=== PATIENT | female | born 1995 | race Caucasian/White ===

== ENCOUNTER 2017-03-04 19:28 | Emergency (ER) | payer OTHER ==
[~2017-03-04] VITALS: Ht 165.1 cm; Wt 63.5 kg
[2017-03-04 19:35] VITALS: BP 119/67
--- NOTE | 2017-03-04 19:44 | PHYS DOC ---
Adult General Chief Complaint Chief Complaint: FLANK PAIN HPI HPI Patient is a 21 year old female with no significant medical history who presents with 2 out of 10 right flank pain that began this afternoon. Patient is also complaining of nausea with vomiting. Patient denies any history of kidney stones but has a family history of kidney stones with the mother and grand father having kidney stones. Patient states she is currently on her cycle. Denies any urgency frequency or dysuria. Review of Systems Review of Systems Constitutional: Denies fever or chills [] Eyes: Denies change in visual acuity, redness, or eye pain [] HENT: Denies nasal congestion or sore throat [] Respiratory: Denies cough or shortness of breath [] Cardiovascular: No additional information not addressed in HPI [] GI: Nausea and vomiting : Right flank pain Musculoskeletal: Denies back pain or joint pain [] Integument: Denies rash or skin lesions [] Neurologic: Denies headache, focal weakness or sensory changes [] Endocrine: Denies polyuria or polydipsia [] Current Medications Current Medications Current Medications Medications (Trade) Dose Ordered Sig/Rachel Start Time Stop Time Status Last Admin Dose Admin Fentanyl Citrate (Fentanyl 2ml Vial) 50 mcg 1X ONCE 03/04/17 21:45 03/04/17 21:46 UNV Ketorolac Tromethamine (Toradol) 30 mg 1X ONCE 03/04/17 19:45 03/04/17 19:46 DC 03/04/17 20:11 30 MG Ondansetron HCl (Zofran) 4 mg 1X ONCE 03/04/17 19:45 03/04/17 19:46 DC 03/04/17 20:11 4 MG Sodium Chloride 1,000 ml @ 1,000 mls/hr 1X ONCE 03/04/17 19:45 03/04/17 20:44 DC 03/04/17 20:10 1,000 MLS/HR Tamsulosin HCl (Flomax) 0.4 mg 1X ONCE 03/04/17 21:45 03/04/17 21:46 UNV Allergies Allergies Allergies Coded Allergies Type Severity Reaction Last Updated Verified No Known Drug Allergies 03/04/17 No Physical Exam Physical Exam Constitutional: Well developed, well nourished, no acute distress, non-toxic appearance. [] HENT: Normocephalic, atraumatic, bilateral external ears normal, oropharynx moist, no oral exudates, nose normal. [] Eyes: PERRLA, EOMI, conjunctiva normal, no discharge. [] Neck: Normal range of motion, no tenderness, supple, no stridor. [] Cardiovascular:Heart rate regular rhythm, no murmur [] Lungs & Thorax: Bilateral breath sounds clear to auscultation [] Abdomen: Bowel sounds normal, soft, no tenderness, no masses, no pulsatile masses. [] Skin: Warm, dry, no erythema, no rash. [] Back: No tenderness, no CVA tenderness. [] Extremities: No tenderness, no cyanosis, no clubbing, ROM intact, no edema. [] Neurologic: Alert and oriented X 3, normal motor function, normal sensory function, no focal deficits noted. [] Psychologic: Affect normal, judgement normal, mood normal. [] Current Patient Data Vital Signs Vital Signs Date Time Temp Pulse Resp B/P (MAP) Pulse Ox O2 Delivery O2 Flow Rate FiO2 03/04/17 19:35 98.8 108 18 119/67 (84) 100 Room Air 98.8 Lab Values Laboratory Tests Test 03/04/17 18:52 03/04/17 19:40 03/04/17 19:55 POC Urine HCG, Qualitative Hcg negative (Negative) Urine Collection Type Unknown Urine Color Yellow Urine Clarity Clear Urine pH 5.5 Urine Specific Elizabeth >=1.030 Urine Protein 30 mg/dL (NEG-TRACE) Urine Glucose (UA) Negative mg/dL (NEG) Urine Ketones (Stick) Negative mg/dL (NEG) Urine Blood Large (NEG) Urine Nitrite Negative (NEG) Urine Bilirubin Negative (NEG) Urine Urobilinogen Dipstick 0.2 mg/dL (0.2 mg/dL) Urine Leukocyte Esterase Negative (NEG) Urine RBC Tntc /HPF (0-2) Urine WBC 0 /HPF (0-4) Urine Bacteria 0 /HPF (0-FEW) Urine Mucus Marked /LPF Urine Opiates Screen Neg (NEG) Urine Methadone Screen Neg (NEG) Urine Barbiturates Neg (NEG) Urine Phencyclidine Screen Neg (NEG) Urine Amphetamine/Methamphetamine Neg (NEG) Urine Benzodiazepines Screen Neg (NEG) Urine Cocaine Screen Neg (NEG) Urine Cannabinoids Screen Neg (NEG) Urine Ethyl Alcohol Neg (NEG) White Blood Count 11.5 x10^3/uL (4.0-11.0) H Red Blood Count 4.15 x10^6/uL (3.50-5.40) Hemoglobin 9.0 g/dL (12.0-15.5) L Hematocrit 28.2 % (36.0-47.0) L Mean Corpuscular Volume 68 fL (79-100) L Mean Corpuscular Hemoglobin 22 pg (25-35) L Mean Corpuscular Hemoglobin Concent 32 g/dL (31-37) Red Cell Distribution Width 17.3 % (11.5-14.5) H Platelet Count 333 x10^3/uL (140-400) Neutrophils (%) (Auto) 62 % (31-73) Lymphocytes (%) (Auto) 29 % (24-48) Monocytes (%) (Auto) 4 % (0-9) Eosinophils (%) (Auto) 4 % (0-3) H Basophils (%) (Auto) 1 % (0-3) Neutrophils # (Auto) 7.2 x10^3uL (1.8-7.7) Lymphocytes # (Auto) 3.3 x10^3/uL (1.0-4.8) Monocytes # (Auto) 0.5 x10^3/uL (0.0-1.1) Eosinophils # (Auto) 0.5 x10^3/uL (0.0-0.7) Basophils # (Auto) 0.1 x10^3/uL (0.0-0.2) Platelet Estimate Adequate (ADEQUATE) Hypochromasia Mod Poikilocytosis Slight Anisocytosis Slight Microcytosis Mod Ovalocytes Few Schistocytes Occ Sodium Level 142 mmol/L (136-145) Potassium Level 3.6 mmol/L (3.5-5.1) Chloride Level 106 mmol/L (98-107) Carbon Dioxide Level 26 mmol/L (21-32) Anion Gap 10 (6-14) Blood Urea Nitrogen 12 mg/dL (7-20) Creatinine 0.7 mg/dL (0.6-1.0) Estimated GFR (Cockcroft-Gault) 107.8 BUN/Creatinine Ratio 17 (6-20) Glucose Level 95 mg/dL (70-99) Calcium Level 9.3 mg/dL (8.5-10.1) Total Bilirubin 0.1 mg/dL (0.2-1.0) L Aspartate Amino Transferase (AST) 17 U/L (15-37) Alanine Aminotransferase (ALT) 18 U/L (14-59) Alkaline Phosphatase 86 U/L (46-116) Total Protein 8.0 g/dL (6.4-8.2) Albumin 4.1 g/dL (3.4-5.0) Albumin/Globulin Ratio 1.1 (1.0-1.7) Lipase 218 U/L (73-393) Ethyl Alcohol Level < 10 mg/dL (0-10) Laboratory Tests 03/04/17 19:55 Laboratory Tests 03/04/17 19:55 EKG EKG [] Radiology/Procedures Radiology/Procedures []PROCEDURE: CT ABDOMEN PELVIS WO CONTRAST Exam performed: CT abdomen and pelvis without contrast. HISTORY: Sudden onset severe right flank pain and vomiting today. DATE OF SERVICE: 03/04/2017.COMPARISON: None available TECHNIQUE: Contiguous helical acquisitions are obtained through the abdomen and pelvis without IV contrast. Sagittal and coronal reformatted images are obtained and reviewed. FINDINGS: There is a 3.3 mm calculus in the right proximal ureter causing mild proximal obstructive changes. There is also a 3.0 mm nonobstructing calculus in the right midpole. The lung bases are clear. The visualized heart is normal. Lack of IV contrast limits evaluation of abdominal viscera, however the liver, gallbladder, spleen and pancreas are normal. Both adrenal glands and the left kidney is unremarkable. Aorta appears grossly normal in caliber. Small and large bowel loops are nondilated and unremarkable. Visualized presumed appendix appears grossly normal. No inflammatory changes seen in the right lower quadrant. The urinary bladder is decompressed. The uterus is anteverted. No adnexal masses seen. Interrogation of the windows demonstrates no bony abnormality. IMPRESSION: 3.3 mm calculus in the right proximal ureter causing mild proximal obstructive changes. Approximately 3 mm nonobstructing calculus in the right kidney. PQRS Compliance Statement: One or more of the following individualized dose reduction techniques were utilized for this examination: 1. Automated exposure control 2. Adjustment of the mA and/or kV according to patient size 3. Use of iterative reconstruction technique Electronically signed by: Brent Wan MD (03/04/2017 9:05 PM) DICTATED and SIGNED BY: BRENT WAN MD DATE: 03/04/172053 CC: AURELIANO STEVE APRN; NO PCP ~ Course & Med Decision Making Course & Med Decision Making Pertinent Labs and Imaging studies reviewed. (See chart for details) This is a 21-year-old otherwise healthy female who presents with right flank pain with nausea and vomiting that began today. Patient has no personal history of kidney stones but has a family history of kidney stones. She is currently on her menstrual cycle. Negative urine hCG, urine analysis is negative for infection but noted for large amount of blood. CBC with a WBC of 11.5, hemoglobin 9.8 hematocrit 28.2, patient is on her cycle. Encouraged to consider taking [id number] iron tablets to improve her hemoglobin levels. CMP with no acute findings. CT of the abdomen and pelvic was noted for 3.3 mm calculus in the right proximal ureter causing mild proximal obstructive changes and approximately 3 mm nonobstructing calculus in the right kidney. Patient's pain is well controlled in the ED. She's been given fentanyl, Toradol , Flomax, and 1 L of IV fluid. She'll be discharged with hydrocodone Flomax and Zofran. Provided urologist for follow-up. Instructed to return to the ED at any point symptoms worsen. Dragon Disclaimer Dragon Disclaimer This electronic medical record was generated, in whole or in part, using a voice recognition dictation system. Departure Departure Impression: Primary Impression: Kidney stones Additional Impressions: Flank pain, acute Nausea and vomiting Disposition: 01 HOME, SELF-CARE Condition: STABLE Referrals: NO PCP (PCP) JOSE DANIEL SOTO MD Follow-up in one week Patient Instructions: Diet for Kidney Stones, Kidney Stones Additional Instructions: You were seen for right flank pain. Your CT of the abdomen and pelvic is noted for a 3 mm kidney stone in the right proximal ureter as well as a nonobstructing calculus in the right kidney. Follow-up with your urologist or primary care doctor or the provided urologist in the next seven days. Take the prescribed medicines as ordered. Come back to the ED if symptoms worsen. Do not drive or operate machinery on pain medicine. Scripts Naproxen (NAPROXEN) 500 Mg Tablet. 1 TAB PO BID, #60 TAB 2 Refills Prov: AURELIANO STEVE APRN 03/04/17 Ondansetron (ZOFRAN ODT) 4 Mg Tab.rapdis 1 TAB SL Q8HRS, #15 TAB Prov: AURELIANO STEVE APRN 03/04/17 Tamsulosin Hcl (FLOMAX) 0.4 Mg Cap.er.24h 1 CAP PO DAILY, #6 CAP 11 Refills Prov: AURELIANO STEVE APRN 03/04/17 Hydrocodone/Apap 5-325 (NORCO 5-325 TABLET) 1 Each Tablet 1-2 TAB PO Q4-6HRS, #25 TAB Prov: AURELIANO STEVE APRN 03/04/17 Problem Qualifiers Additional Impressions: Nausea and vomiting Vomiting type: unspecified Vomiting Intractability: unspecified Qualified Codes: R11.2 - Nausea with vomiting, unspecified AURELIANO STEVE APRN Mar 04, 2017 19:43
[2017-03-04] MEDS ORDERED: IV NORMAL SALINE 1000ML BAG 1,000 ML IV ONE (19:45)
[2017-03-04] MEDS ORDERED: KETOROLAC TROMETHAMINE 30 MG/ML INJ. IV ONE (19:45)
[2017-03-04] MEDS ORDERED: ONDANSETRON PF 4 MG/2 ML VIAL. IV ONE (19:45)
[2017-03-04 19:48] LABS: BILIRUBIN,URINE NEGATIVE (NEG); GLUCOSE,URINE NEGATIVE (NEG); NITRITE,URINE NEGATIVE (NEG); PH,URINE 5.5; PROTEIN,URINE 30 mg/dL (NEG-TRACE); UROBILINOGEN,URINE 0.2 mg/dL (0.2 mg/dL)
[2017-03-04 19:55] LABS: BARBITURATES NEG (NEG); BENZODIAZEPINES NEG (NEG); CANNABINOIDS NEG (NEG); COCAINE NEG (NEG); METHADONE NEG (NEG); OPIATES NEG (NEG); PHENCYCLIDINE NEG (NEG)
[2017-03-04 20:04] LABS: BACTERIA,URINE 0 /HPF (0-FEW); RBC,URINE TNTC /HPF (0-2); WBC,URINE 0 /HPF (0-4)
[2017-03-04 20:10] LABS: BASO # 0.1 x10^3/uL (0.0-0.2); BASO % 1 % (0-3); EOS % 4 % (0-3); HEMATOCRIT 28.2 % (36.0-47.0); LYMPH # 3.3 x10^3/uL (1.0-4.8); LYMPH % 29 % (24-48); MEAN CORPUSCULAR HEMOGLOBIN 22 pg (25-35); MEAN CORPUSCULAR HGB CONC 32 g/dL (31-37); MEAN CORPUSCULAR VOLUME 68 fL (79-100); MONO % 4 % (0-9); NEUT % 62 % (31-73); PLATELET COUNT 333 x10^3/uL (140-400); RED BLOOD COUNT 4.15 x10^6/uL (3.50-5.40); RED CELL DISTRIBUTION WIDTH 17.3 % (11.5-14.5); WHITE BLOOD COUNT 11.5 x10^3/uL (4.0-11.0)
[2017-03-04 20:19] LABS: CALCIUM 9.3 mg/dL (8.5-10.1); CREATININE 0.7 mg/dL (0.6-1.0); GFR 107.8; POTASSIUM 3.6 mmol/L (3.5-5.1)
[2017-03-04 20:26] LABS: ALBUMIN 4.1 g/dL (3.4-5.0); ALBUMIN/GLOBULIN RATIO 1.1 (1.0-1.7); TOTAL BILIRUBIN 0.1 mg/dL (0.2-1.0)
--- NOTE | 2017-03-04 21:08 | RAD ---
Exam performed: CT abdomen and pelvis without contrast. HISTORY: Sudden onset severe right flank pain and vomiting today. DATE OF SERVICE: 03/04/2017.COMPARISON: None available TECHNIQUE: Contiguous helical acquisitions are obtained through the abdomen and pelvis without IV contrast. Sagittal and coronal reformatted images are obtained and reviewed. FINDINGS: There is a 3.3 mm calculus in the right proximal ureter causing mild proximal obstructive changes. There is also a 3.0 mm nonobstructing calculus in the right midpole. The lung bases are clear. The visualized heart is normal. Lack of IV contrast limits evaluation of abdominal viscera, however the liver, gallbladder, spleen and pancreas are normal. Both adrenal glands and the left kidney is unremarkable. Aorta appears grossly normal in caliber. Small and large bowel loops are nondilated and unremarkable. Visualized presumed appendix appears grossly normal. No inflammatory changes seen in the right lower quadrant. The urinary bladder is decompressed. The uterus is anteverted. No adnexal masses seen. Interrogation of the windows demonstrates no bony abnormality. IMPRESSION: 3.3 mm calculus in the right proximal ureter causing mild proximal obstructive changes. Approximately 3 mm nonobstructing calculus in the right kidney. PQRS Compliance Statement: One or more of the following individualized dose reduction techniques were utilized for this examination: 1. Automated exposure control 2. Adjustment of the mA and/or kV according to patient size 3. Use of iterative reconstruction technique Electronically signed by: Lyn Wan MD (03/04/2017 9:05 PM)
[2017-03-04 21:15] LABS: PLT ESTIMATE ADEQUATE (ADEQUATE)
[2017-03-04 21:16] LABS: ANISOCYTOSIS SLIGHT; HYPOCHROMIA MOD; MICROCYTOSIS MOD; POIKILOCYTOSIS SLIGHT
[2017-03-04 21:17] LABS: OVALOCYTES FEW; SCHISTOCYTES OCC
[2017-03-04] MEDS ORDERED: ONDA4TAB10 SL (21:52)
[2017-03-04] MEDS ORDERED: HYDR-971 PO (21:52)
[2017-03-04] MEDS ORDERED: TAMS0.4C97 PO (21:52)
[2017-03-04] MEDS ORDERED: NAPR500T8 PO (21:52)
[2017-03-04] MEDS ORDERED: fentaNYL PF VIAL 100 MCG/2 ML VIAL IV ONE (22:30)
[2017-03-04] MEDS ORDERED: TAMSULOSIN 0.4 MG CAP.ER.24H. PO ONE (22:30)
== END 2017-03-04 22:00 | disposition home or self-care (01) ==
LOC: ER 19:28
DX: N20.0 Calculus of kidney (principal); Z84.1 Family history of disorders of kidney and ureter
CPT/HCPCS: 36415; 74176; 80053; 80305; 80320; 81001; 81025; 83690; 85007; 85027; 96361; 96374; 96375; 99285; J1885; J2405; J7030; G0480; G0481